=== PATIENT | female | born 1935 | race Caucasian/White ===

== ENCOUNTER 2018-01-13 07:07 | Outpatient (CLI) | payer MEDICARE ==
[2018-01-13] MEDS ORDERED: ADENOSINE 60 MG/20 ML VIAL ONE (09:50)
--- NOTE | 2018-01-13 12:13 | NM ---
MYOCARDIAL PERFUSION STUDY: Date: 01/13/18 HISTORY: Chest pain, unspecified. RADIOPHARMACEUTICALS: 30.9 mCi technetium-99m sestamibi, IV at stress. 10.2 mCi technetium-99m sestamibi, IV at rest. MEDICATIONS: 31.9 mg (10.6 mL) Adenosine, IV. FINDINGS: No reversible defects are seen between the stress and resting acquisitions. The quantitative analysis also shows no significant reversible defect. Gated images show normal ventricular wall motion and wa ll thickening. The calculated left ventricular ejection fraction is 66%. There is elevation of the tr ansient ischemic dilatation, which is 1.35, with upper normal being 1.22. IMPRESSION: 1. Normal myocardial perfusion study without evidence of a reversible defect seen to suggest ischemi a. 2. Normal LVEF of 66%. 3. Increase in transient ischemic dilatation ratio of 1.35. POS: [facility]
== END 2018-01-13 07:08 | disposition home or self-care (01) ==
LOC: NM 07:07
PROVIDERS: ATTEND Internal Medicine
DX: R07.9 Chest pain, unspecified (principal)
CPT/HCPCS: 78452; 93017; A9500; J0153

== ENCOUNTER 2020-12-30 08:26 | Outpatient (CLI) | payer MEDICARE ==
[2020-12-30] MEDS ORDERED: Regadenoson 0.4 MG/5 ML SYRINGE ONE (11:03)
== END 2020-12-30 08:27 | disposition home or self-care (01) ==
LOC: NM 08:26
PROVIDERS: ATTEND Internal Medicine
DX: R07.9 Chest pain, unspecified (principal)
CPT/HCPCS: 78452; 93017; A9500; J2785

== ENCOUNTER 2023-01-29 10:24 | Emergency (ER) | payer MEDICARE ==
[2023-01-29] MEDS ORDERED: fentaNYL 50 mcg/mL 1 mL Vial ONE (11:06)
[2023-01-29] MEDS ORDERED: Boostrix 0.5 ML (Tdap) VIAL (>/=7 yrs of age) ONE (11:06)
[2023-01-29 12:24] LABS: #Basophils 0.1 thou/uL (0.0-0.2); #Eosinphils 0.3 thou/uL (0.0-0.7); #Monocytes 0.6 thou/uL (0.11-0.59); %Basophils 0.7 % (0.0-1.0); %Eosinophils 4.8 % (0.0-10.0); %Lymphocytes 29.5 % (21.0-51.0); %Neutrophils 56.9 % (42.0-75.0); Mean Corpuscular HGB CONC 31.8 g/dL (32.0-36.0); Mean Corpuscular Hemoglobin 28.9 pg (27.0-31.0); Mean Corpuscular Volume 91.1 fl (78.0-98.0); Mean Platelet Volume 11.7 fL (7.4-10.4); Platelet Count 141 10x3/uL (130-400); RBC Distribution Width 13.4 % (11.5-14.5)
[2023-01-29 12:44] LABS: ALT (SGPT) 11 U/L (8-55); AST (SGOT) 21 U/L (5-34); Albumin 3.7 g/dL (3.4-4.8); Alkaline Phosphatase 74 U/L (40-110); Anion Gap 11 mmol/L (10-20); BUN (Urea Nitrogen) 16 mg/dL (9.8-20.1); Bilirubin, Total 0.5 mg/dL (0.2-1.2); Calc. Creatinine Clearance 0 mL/min (70-130); Calcium 9.1 mg/dL (7.8-10.44); Carbon Dioxide 26 mmol/L (23-31); Chloride 103 mmol/L (98-107); Estimated GFR 67; Globulin 3.4 g/dL (2.4-3.5); Glucose 122 mg/dL (83-110); Potassium 4.3 mmol/L (3.5-5.1); Protein, Total 7.1 g/dL (5.8-8.1); Sodium 136 mmol/L (136-145)
== END 2023-01-29 13:16 | disposition home or self-care (01) ==
LOC: ERS 10:24
DX: S42.301A Unspecified fracture of shaft of humerus, right arm, initial encounter for closed fracture (principal); R00.1 Bradycardia, unspecified; W18.30XA Fall on same level, unspecified, initial encounter; Z23 Encounter for immunization
CPT/HCPCS: 70450; 72125; 72170; 73060; 73110; 73564; 73660; 80053; 85025; 90471; 90715; 93005; 96372; 99285; J3010; 36415

== ENCOUNTER 2023-11-16 09:25 | Emergency (ER) | payer MEDICARE ==
[2023-11-16 10:06] LABS: #Eosinphils 0.2 thou/uL (0.0-0.7); #Monocytes 0.6 thou/uL (0.11-0.59); #Neutrophils 6.1 thou/uL (1.40-6.50); %Basophils 0.2 % (0.0-1.0); %Eosinophils 2.5 % (0.0-10.0); %Lymphocytes 25.6 % (21.0-51.0); %Monocytes 6.1 % (0.0-10.0); %Neutrophils 65.4 % (42.0-75.0); Hematocrit 34.1 % (36.0-47.0); Hemoglobin 11.2 g/dL (12.0-16.0); Mean Corpuscular HGB CONC 32.8 g/dL (32.0-36.0); Mean Corpuscular Hemoglobin 30.3 pg (27.0-31.0); Mean Corpuscular Volume 92.2 fl (78.0-98.0); Mean Platelet Volume 12.1 fL (7.4-10.4); Platelet Count 124 10x3/uL (130-400); White Blood Cell (WBC) Count 9.3 10x3/uL (4.8-10.8)
[2023-11-16] MEDS ORDERED: Nitroglycerin 0.4 MG TAB (25 Tab Bottle) ONE (10:14)
[2023-11-16] MEDS ORDERED: Aspirin Chewable 81 MG TAB ONE (10:15)
[2023-11-16 10:31] LABS: ALT (SGPT) 14 U/L (8-55); AST (SGOT) 23 U/L (5-34); Albumin 3.7 g/dL (3.4-4.8); Alkaline Phosphatase 93 U/L (40-110); Anion Gap 11 mmol/L (10-20); BUN (Urea Nitrogen) 14 mg/dL (9.8-20.1); Bilirubin, Total 0.8 mg/dL (0.2-1.2); Calc. Creatinine Clearance 0 mL/min (70-130); Calcium 8.9 mg/dL (7.8-10.44); Carbon Dioxide 28 mmol/L (23-31); Chloride 105 mmol/L (98-107); Estimated GFR 69; Globulin 3.4 g/dL (2.4-3.5); Glucose 105 mg/dL (83-110); Lipase 46 U/L (8-78); Potassium 3.8 mmol/L (3.5-5.1); Protein, Total 7.1 g/dL (5.8-8.1); Sodium 140 mmol/L (136-145)
[2023-11-16 10:34] LABS: Troponin I Less than 0.010 ng/mL (< 0.028)
== END 2023-11-16 16:56 | disposition home or self-care (01) ==
LOC: ERS 09:25
DX: R07.9 Chest pain, unspecified (principal)
CPT/HCPCS: 36415; 71045; 71275; 74177; 80053; 83690; 84484; 85025; 93005

== ENCOUNTER 2024-03-04 17:20 | Inpatient (IN) | payer MEDICARE ==
[~2024-03-04 17:20] MED LIST: Iopamidol-370 76% 500 ML MDV (1 ML CHARGE) ONE
[2024-03-04] MEDS ORDERED: LORazepam 2 MG/ML SYR.(CARPUJECT) ONE (17:36)
[2024-03-04] MEDS ORDERED: levETIRAcetam 500 MG (5 mL) VIAL ONE (17:40)
[2024-03-04 18:05] LABS: #Basophils 0.06 10x3/uL (0.0-0.2); %Basophils 0.5 % (0.0-1.0); %Eosinophils 1.6 % (0.0-10.0); %Lymphocytes 35.2 % (21.0-51.0); %Monocytes 7.1 % (0.0-10.0); %Neutrophils 55.1 % (42.0-75.0); Hematocrit 32.5 % (36.0-47.0); Hemoglobin 10.4 g/dL (12.0-16.0); Mean Corpuscular Hemoglobin 30.8 pg (27.0-31.0); Mean Corpuscular Volume 96.2 fL (78.0-98.0); Platelet Count 219 10x3/uL (130-400); RBC Distribution Width 15.7 % (11.5-14.5); Red Blood Cell (RBC) Count 3.38 mill/uL (4.20-5.40)
[2024-03-04 18:20] LABS: ALT (SGPT) 10 U/L (8-55); AST (SGOT) 24 U/L (5-34); Albumin 2.4 g/dL (3.4-4.8); Alkaline Phosphatase 85 U/L (40-110); Anion Gap 18 mmol/L (10-20); BUN (Urea Nitrogen) 14 mg/dL (9.8-20.1); Bilirubin, Total 0.6 mg/dL (0.2-1.2); Calc. Creatinine Clearance 0 mL/min (70-130); Calcium 8.1 mg/dL (7.8-10.44); Carbon Dioxide 17 mmol/L (23-31); Chloride 104 mmol/L (98-107); Estimated GFR 85; Globulin 3.8 g/dL (2.4-3.5); Glucose 142 mg/dL (83-110); Potassium 3.2 mmol/L (3.5-5.1); Protein, Total 6.2 g/dL (5.8-8.1); Sodium 136 mmol/L (136-145)
[2024-03-04 18:25] LABS: Troponin I 0.011 ng/mL (< 0.028)
[2024-03-04 18:54] LABS: PTT 31.3 sec (22.9-36.1)
[2024-03-04 18:57] LABS: Bilirubin Negative (Negative); Blood, Urine 1+ (Negative); CAUTI Indications for Culture Alt mental st,lethar; Clarity Turbid (Clear); Glucose, Urine (Dipstick) Normal (Negative); Ketone, Urine Negative (Negative); Leukocyte 500 Leu/uL (Negative); Mucous/LPF Rare LPF (<2+); Nitrite 2+ (Negative); Protein, Urine (Dipstick) 30 mg/dL (Neg-Trace); Specific Gravity, Urine 1.045 (1.002-1.036); Squamous Epithelial 0-3 HPF (0-3); Urobilinogen Normal mg/dL (Less than 2); WBC/HPF Greater than 50 HPF (0-3)
[2024-03-04 18:58] LABS: Bacteria/HPF 1+ HPF (None Seen)
[2024-03-04 18:59] LABS: Urine Culture Reflex Yes Yes
[2024-03-04 19:03] LABS: Amphetamine Not Detected (NotDetected); Barbiturates Screen Not Detected (NotDetected); Benzodiazepine Screen Not Detected (NotDetected); Cocaine Metabolite Screen Not Detected (NotDetected); Methadone Not Detected (NotDetected); Methamphetamine Not Detected (NotDetected); Opiate Screen Not Detected (NotDetected); Oxycodone Screen Not Detected (NotDetected); Phencyclidine (PCP) Not Detected (NotDetected); THC/Cannabinoid Screen Not Detected (NotDetected); Tricyclic Screen Not Detected (NotDetected)
[2024-03-04] MEDS ORDERED: cefTRIAXone (ROCEPHIN) 2 GM VIAL ONE (19:10)
[2024-03-04] MEDS ORDERED: Sodium Chloride 0.9% 100 ML ONE (19:10)
[2024-03-04 19:11] LABS: INR-International Normal Ratio 1.3; Prothrombin Time 16.3 sec (12.0-14.7)
[2024-03-04 21:01] LABS: Lactic Acid 1.4 mmol/L (0.5-2.2)
[2024-03-04] MEDS ORDERED: Ondansetron PF 4 MG/2 ML Vial IVP PRN (21:30)
[2024-03-04] MEDS ORDERED: Acetaminophen 325 MG TAB PO PRN (21:30)
[2024-03-04] MEDS ORDERED: Ondansetron ODT 4 MG TAB SL PRN (21:30)
[2024-03-04] MEDS ORDERED: Lorazepam 2 MG/ML VIAL SLOW IVP PRN (22:00)
[2024-03-04 22:18] VITALS: BMI 16.2
[2024-03-04 23:17] LABS: Acetaminophen Less than 10 mcg/mL (10.0-30.0); Salicylate Less than 8.0 mg/dL (15.0-30.0)
[2024-03-05 04:43] LABS: #Basophils 0.03 10x3/uL (0.0-0.2); %Basophils 0.3 % (0.0-1.0); %Eosinophils 0.6 % (0.0-10.0); %Lymphocytes 19.6 % (21.0-51.0); %Monocytes 6.3 % (0.0-10.0); %Neutrophils 72.9 % (42.0-75.0); Hematocrit 27.4 % (36.0-47.0); Mean Corpuscular HGB CONC 32.8 g/dL (32.0-36.0); Mean Corpuscular Hemoglobin 31.6 pg (27.0-31.0); Mean Corpuscular Volume 96.1 fL (78.0-98.0); Mean Platelet Volume 12.6 fL (7.4-10.4); Platelet Count 182 10x3/uL (130-400); RBC Distribution Width 15.9 % (11.5-14.5); Red Blood Cell (RBC) Count 2.85 mill/uL (4.20-5.40)
[2024-03-05 05:16] LABS: Anion Gap 11 mmol/L (10-20); BUN (Urea Nitrogen) 9 mg/dL (9.8-20.1); Calc. Creatinine Clearance 60 mL/min (70-130); Calcium 7.3 mg/dL (7.8-10.44); Carbon Dioxide 23 mmol/L (23-31); Chloride 108 mmol/L (98-107); Estimated GFR 92; Glucose 95 mg/dL (83-110); Magnesium 0.9 mg/dL (1.6-2.6); Potassium 3.2 mmol/L (3.5-5.1); Sodium 139 mmol/L (136-145)
[2024-03-05] MEDS ORDERED: Electrolyte Replacement Protocol FS PRN (05:45)
[2024-03-05] MEDS: Magnesium Sulfate In Water 4 GM in Premix 1 BAG IVPB SCH (08:08)
[2024-03-05 11:12] VITALS: BMI 16.2
[2024-03-05] MEDS: Potassium Chloride 20 MEQ in Premix 1 BAG IVPB SCH (11:57)
[2024-03-05] MEDS: Enoxaparin 40 MG (0.4 mL) SYRINGE SC SCH (13:04)
[2024-03-05] MEDS: levETIRAcetam 500 MG (5 mL) VIAL SLOW IVP SCH (13:08)
[2024-03-05 15:35] LABS: Magnesium 2.1 mg/dL (1.6-2.6); Potassium 3.5 mmol/L (3.5-5.1)
[2024-03-05] MEDS: Acetaminophen 650 MG Suppository PR PRN (19:01)
[2024-03-05] MEDS: cefTRIAXone\\ROCEPHIN 2 GM in Sodium Chloride 0.9% 100 ML IVPB SCH (19:08)
[2024-03-05] MEDS: Sodium Chloride 0.9% 1,000 ML IV SCH (23:56)
[2024-03-06 04:54] LABS: #Basophils 0.04 10x3/uL (0.0-0.2); %Basophils 0.6 % (0.0-1.0); %Lymphocytes 20.1 % (21.0-51.0); %Monocytes 8.4 % (0.0-10.0); %Neutrophils 65.5 % (42.0-75.0); Hematocrit 27.9 % (36.0-47.0); Mean Corpuscular HGB CONC 32.3 g/dL (32.0-36.0); Mean Corpuscular Volume 96.2 fL (78.0-98.0); Mean Platelet Volume 12.1 fL (7.4-10.4); Platelet Count 179 10x3/uL (130-400)
[2024-03-06 05:24] LABS: ALT (SGPT) 11 U/L (8-55); AST (SGOT) 26 U/L (5-34); Albumin 2.1 g/dL (3.4-4.8); Alkaline Phosphatase 75 U/L (40-110); Anion Gap 12 mmol/L (10-20); BUN (Urea Nitrogen) 8 mg/dL (9.8-20.1); Bilirubin, Total 0.4 mg/dL (0.2-1.2); Calc. Creatinine Clearance 62 mL/min (70-130); Calcium 7.5 mg/dL (7.8-10.44); Carbon Dioxide 21 mmol/L (23-31); Chloride 112 mmol/L (98-107); Estimated GFR 93; Globulin 3.3 g/dL (2.4-3.5); Glucose 60 mg/dL (83-110); Magnesium 1.9 mg/dL (1.6-2.6); Potassium 3.4 mmol/L (3.5-5.1); Protein, Total 5.4 g/dL (5.8-8.1); Sodium 142 mmol/L (136-145)
[2024-03-06 05:25] LABS: Phosphorus 1.9 mg/dL (2.3-4.7)
[2024-03-06] MEDS ORDERED: Potassium Chloride 20 MEQ TAB PO SCH (08:00)
[2024-03-06] MEDS: Potassium Chloride 20 MEQ in Premix 1 BAG IVPB SCH ×2 (10:06→15:18)
[2024-03-06] MEDS: Enoxaparin 30 MG (0.3 mL) SYRINGE SC SCH (10:07)
[2024-03-06] MEDS: Magnesium 2 GM/50 ML(in water) 2 GM in Premix 1 BAG IVPB SCH (13:09)
[2024-03-06] MEDS: PHOS-NAK 1 PKT PACK PO SCH (13:39)
[2024-03-06] MEDS: Potassium Phosphate 15 MMOL in Sodium Chloride 0.9% 100 ML IVPB SCH ×2 (13:44→18:27)
[2024-03-07 05:30] LABS: Anion Gap 22 mmol/L (10-20); BUN (Urea Nitrogen) 6 mg/dL (9.8-20.1); Calc. Creatinine Clearance 57 mL/min (70-130); Calcium 7.7 mg/dL (7.8-10.44); Carbon Dioxide 15 mmol/L (23-31); Chloride 113 mmol/L (98-107); Estimated GFR 91; Glucose 55 mg/dL (83-110); Magnesium 1.9 mg/dL (1.6-2.6); Potassium 4.5 mmol/L (3.5-5.1); Sodium 145 mmol/L (136-145)
[2024-03-07 06:19] LABS: #Basophils 0.03 10x3/uL (0.0-0.2); %Basophils 0.4 % (0.0-1.0); %Eosinophils 2.3 % (0.0-10.0); %Lymphocytes 24.7 % (21.0-51.0); %Monocytes 6.4 % (0.0-10.0); %Neutrophils 65.8 % (42.0-75.0); Hematocrit 29.2 % (36.0-47.0); Hemoglobin 9.3 g/dL (12.0-16.0); Mean Corpuscular HGB CONC 31.8 g/dL (32.0-36.0); Mean Corpuscular Volume 100.3 fL (78.0-98.0); Platelet Count 198 10x3/uL (130-400); RBC Distribution Width 16.2 % (11.5-14.5); Red Blood Cell (RBC) Count 2.91 mill/uL (4.20-5.40)
[2024-03-07] MEDS: Magnesium 2 GM/50 ML(in water) 2 GM in Premix 1 BAG IVPB SCH (08:14)
[2024-03-07] MEDS: Dextrose 5%-Lactated Ringers 1,000 ML IV SCH (08:14)
[2024-03-07] MEDS: Potassium Phosphate 15 MMOL in Sodium Chloride 0.9% 100 ML IVPB SCH (12:45)
[2024-03-07] MEDS: PHOS-NAK 1 PKT PACK PO SCH (13:12)
[2024-03-07] MEDS: Atorvastatin Calcium 40 MG TAB PO SCH (21:22)
[2024-03-07] MEDS: Apixaban 2.5 MG TAB PO SCH (21:22)
[2024-03-08 07:12] LABS: Anion Gap 13 mmol/L (10-20); BUN (Urea Nitrogen) 6 mg/dL (9.8-20.1); Calc. Creatinine Clearance 58 mL/min (70-130); Carbon Dioxide 21 mmol/L (23-31); Chloride 111 mmol/L (98-107); Estimated GFR 92; Glucose 115 mg/dL (83-110); Magnesium 1.6 mg/dL (1.6-2.6); Sodium 141 mmol/L (136-145)
[2024-03-08] MEDS: PHOS-NAK 1 PKT PACK PO SCH (09:31)
[2024-03-08] MEDS: Magnesium 2 GM/50 ML(in water) 2 GM in Premix 1 BAG IVPB SCH (09:31)
[2024-03-08] MEDS: Potassium Phosphate 12 MMOL in Sodium Chloride 0.9% 100 ML IVPB SCH (09:37)
[2024-03-08] MEDS: Furosemide 40 MG (4 mL) VIAL SLOW IVP SCH (18:18)
[2024-03-09 07:53] LABS: Anion Gap 11 mmol/L (10-20); BUN (Urea Nitrogen) 4 mg/dL (9.8-20.1); Calc. Creatinine Clearance 58 mL/min (70-130); Calcium 8.1 mg/dL (7.8-10.44); Carbon Dioxide 27 mmol/L (23-31); Chloride 104 mmol/L (98-107); Estimated GFR 92; Glucose 97 mg/dL (83-110); Magnesium 1.6 mg/dL (1.6-2.6); Phosphorus 2.5 mg/dL (2.3-4.7); Potassium 3.2 mmol/L (3.5-5.1); Sodium 139 mmol/L (136-145)
[2024-03-09] MEDS: Potassium Chloride 20 MEQ TAB PO SCH (09:33)
[2024-03-09] MEDS: Magnesium 2 GM/50 ML(in water) 2 GM in Premix 1 BAG IVPB SCH (09:35)
[2024-03-09 15:34] LABS: Potassium 4.2 mmol/L (3.5-5.1)
[2024-03-09] MEDS: Mirtazapine 15 MG TAB PO SCH (22:50)
[2024-03-09] MEDS: levETIRAcetam 500 MG TAB PO SCH (22:50)
[2024-03-10 05:28] LABS: Magnesium 1.8 mg/dL (1.6-2.6)
[2024-03-10] MEDS: LevoFLOXacin 500 MG TAB PO SCH (05:52)
[2024-03-10 07:07] LABS: #Basophils 0.03 10x3/uL (0.0-0.2); %Basophils 0.5 % (0.0-1.0); %Eosinophils 7.7 % (0.0-10.0); %Lymphocytes 31.5 % (21.0-51.0); %Monocytes 10.9 % (0.0-10.0); %Neutrophils 49.2 % (42.0-75.0); Hematocrit 28.2 % (36.0-47.0); Hemoglobin 9.1 g/dL (12.0-16.0); Mean Corpuscular HGB CONC 32.3 g/dL (32.0-36.0); Mean Corpuscular Hemoglobin 31.5 pg (27.0-31.0); Mean Corpuscular Volume 97.6 fL (78.0-98.0); Mean Platelet Volume 11.8 fL (7.4-10.4); Platelet Count 184 10x3/uL (130-400); RBC Distribution Width 16.1 % (11.5-14.5); Red Blood Cell (RBC) Count 2.89 mill/uL (4.20-5.40)
[2024-03-10 07:44] LABS: Anion Gap 10 mmol/L (10-20); BUN (Urea Nitrogen) 8 mg/dL (9.8-20.1); Calc. Creatinine Clearance 59 mL/min (70-130); Calcium 8.1 mg/dL (7.8-10.44); Carbon Dioxide 28 mmol/L (23-31); Chloride 105 mmol/L (98-107); Estimated GFR 92; Glucose 83 mg/dL (83-110); Potassium 3.9 mmol/L (3.5-5.1); Sodium 139 mmol/L (136-145)
[2024-03-10] MEDS: FLUoxetine HCl 20 MG CAP PO SCH (09:14)
[2024-03-10] MEDS: Magnesium 2 GM/50 ML(in water) 2 GM in Premix 1 BAG IVPB SCH (09:18)
[2024-03-10] MEDS: levETIRAcetam 500 mg/5 ml Oral Solution PO SCH (09:27)
[2024-03-10] MEDS: Ketorolac Tromethamine 30 MG (1 mL) VIAL IVP SCH (22:38)
[2024-03-11] MEDS ORDERED: Acetaminophen 325 MG TAB PO PRN (15:52)
[2024-03-11] MEDS: levETIRAcetam 500 mg/5 ml Oral Solution PO SCH (19:44)
[2024-03-11] MEDS: Ketorolac Tromethamine 30 MG (1 mL) VIAL IVP SCH (23:22)
[2024-03-11] MEDS: Lidocaine 4% Patch TD SCH (23:22)
[2024-03-12] MEDS: Transdermal Patch Removal TOP SCH (11:47)
[2024-03-12] MEDS: Ipratropium/Albuterol 3 ML NEB NEB SCH (14:21)
[2024-03-12] MEDS: methylPREDNISolone Sod Succ 40 MG VIAL IVP SCH (16:37)
[2024-03-12] MEDS: Metoprolol Tartrate 50 MG TAB PO SCH (21:04)
[2024-03-12] MEDS: dilTIAZem 30 MG TAB PO SCH (21:04)
[2024-03-13] MEDS: predniSONE 20 MG TAB PO SCH (10:50)
[2024-03-13 17:06] VITALS: BP 81/53; TEMP 98.1
== END 2024-03-13 17:47 | disposition home or self-care (01) | DRG 871 ==
LOC: ERS 17:20 → 2SE 20:54
PROVIDERS: ADMIT Student in an Organized Health Care Education/Training Program; ATTEND Internal Medicine
DX: A41.9 Sepsis, unspecified organism (principal); G93.41 Metabolic encephalopathy; N39.0 Urinary tract infection, site not specified; I69.854 Hemiplegia and hemiparesis following other cerebrovascular disease affecting left non-dominant side; R56.9 Unspecified convulsions; E78.5 Hyperlipidemia, unspecified; I10 Essential (primary) hypertension; M19.90 Unspecified osteoarthritis, unspecified site; E87.6 Hypokalemia; D64.9 Anemia, unspecified; I48.0 Paroxysmal atrial fibrillation; Z66 Do not resuscitate; Z79.899 Other long term (current) drug therapy; Z79.01 Long term (current) use of anticoagulants
CPT/HCPCS: 36415; 36416; 51701; 70450; 70496; 70498; 71045; 80048; 80053; 80143; 80179; 80306; 81001; 83605; 83735; 83880; 84100; 84146; 84443; 84484; 85025; 85610; 85730; 87040; 87077; 87086; 87186; 93005; 93306; 94640; 94760; 95700; 95711; 95819; 96361; 96365; 96375; 80307; J0696; J1650; J1885; J1940; J1953; J2060; J2920; J3475; J3480; J3490; J7050; J7512; J7620; Q9967